=== PATIENT | male | born 1980 | race Two or more races ===

== ENCOUNTER → 2018-03-08 | Emergency (ER) | payer OTHER ==
[~2018-03-08] VITALS: Ht 175.3 cm; Wt 91.2 kg
[~2018-03-08] MED LIST: CEFUROXIME500 MG PO; CIPRO500 MG PO; LEVSIN/SL0.125 MG SL; PEPCID20 MG PO; PEPTO-BISM525 MG/15 PO; PROBIOTIC ACID1 EAC1 PO; TRIUMEQ TABLET1 EACH PO
== END | disposition home or self-care (01) ==
LOC: ER 23:35
DX: N39.0 Urinary tract infection, site not specified (principal); R50.9 Fever, unspecified

== ENCOUNTER 2019-02-10 14:32 | Emergency (ER) | payer OTHER ==
[~2019-02-10] VITALS: Ht 180.3 cm; Wt 85.7 kg
== END 2019-02-10 19:56 | disposition home or self-care (01) ==
LOC: ER 14:32
DX: R51 Headache (principal)

== ENCOUNTER 2019-12-21 18:40 | Emergency (ER) | payer OTHER ==
[~2019-12-21] VITALS: Ht 180.3 cm; Wt 86.2 kg
== END 2019-12-21 23:02 | disposition home or self-care (01) ==
LOC: ER 18:40
DX: J06.9 Acute upper respiratory infection, unspecified (principal)